=== PATIENT | female | born 1965 | race Native Hawaiian/Other Pacific Islander ===

== ENCOUNTER 2022-05-22 11:21 | Inpatient (IN) | payer MEDICAID, OTHER ==
[~2022-05-22] VITALS: Ht 165.1 cm; Wt 135.1 kg
[2022-05-22 12:00] LABS: Basophils # (auto) 0 10 ^3/uL (0-0.2); Basophils % (auto) 0.6 % (0.0-2.0); Eosinophils # (auto) 0.4 10 ^3/uL (0-0.8); Eosinophils % (auto) 6.8 % (0.0-7.0); Hematocrit 42.6 % (36.0-46.0); Hemoglobin 14.2 g/dL (12.2-16.2); Lymphocytes # (auto) 1.3 10 ^3/uL (0.4-5.4); Lymphocytes % (auto) 24.7 % (10.0-50.0); Mean Corpuscular Hemoglobin 30.6 pg (28.0-32.0); Mean Corpuscular Hgb Conc. 33.5 g/dL (32.0-36.0); Mean Corpuscular Volume 91.5 fL (80.0-100.0); Monocytes # (auto) 0.3 10 ^3/uL (0-1.3); Monocytes % (auto) 6.4 % (0.0-12.0); Neutrophils # (auto) 3.2 10 ^3/uL (1.6-8.6); Neutrophils % (auto) 61.5 % (37.0-80.0); Red Blood Cells 4.65 10^6/uL (4.0-5.20); Red Cell Distribution Width 13.8 % (11.8-14.3); White Blood Cell 5.3 10^3/uL (4.4-10.8)
[2022-05-22] MEDS ORDERED: cloNIDine HCL 0.1 MG TAB PO ONE (12:15)
[2022-05-22 12:41] LABS: Albumin 3.7 g/dL (3.4-5.0); Calcium 8.6 mg/dL (8.5-10.1); Potassium 3.9 mmol/L (3.5-5.1)
[2022-05-22 12:46] LABS: BUN/Creatinine Ratio 21.3; Bilirubin, Total 0.5 mg/dL (0.2-1.0); Total Protein 7.7 g/dL (6.4-8.2)
[2022-05-22] MEDS ORDERED: hydrALAZINE HCL 20 MG/ML VL IV ONE (15:00)
[2022-05-22] MEDS ORDERED: METO-289 PO (15:21)
[2022-05-22] MEDS ORDERED: HYDR25TA5 PO (15:21)
[2022-05-22] MEDS ORDERED: ATOR10TA52 PO (15:21)
[2022-05-22] MEDS ORDERED: AMLO-489 PO (15:21)
[2022-05-22] MEDS ORDERED: MORPHINE SULFATE INJ 2 MG/ml SYRG IV PRN (16:00)
[2022-05-22] MEDS ORDERED: ASPirin 81 mg TAB PO ONE (16:00)
[2022-05-22] MEDS ORDERED: ONDANSETRON HCL 4 MG/2 ML VIAL IV PRN (16:00)
[2022-05-22] MEDS ORDERED: NITROGLYCERIN 0.4 MG SL TAB SL PRN (16:00)
[2022-05-22] MEDS ORDERED: DEXTROSE (50%) 50ML SYRG IV PRN (16:30)
[2022-05-22 17:05] LABS: Cholesterol 151 mg/dL (< 200); HDL Cholesterol 44 mg/dL (40-59); LDL Cholesterol 101 mg/dL (< 100); Triglycerides 90 mg/dL (< 150)
[2022-05-22] MEDS ORDERED: cloNIDine HCL 0.1 MG TAB PO PRN (17:30)
[2022-05-22] MEDS ORDERED: hydrALAZINE HCL 20 MG/ML VL IV PRN (17:30)
[2022-05-22] MEDS ORDERED: amLODIPine BESYLATE 5 MG TAB PO SCH (17:49)
[2022-05-22] MEDS: ACCU-CHEK COMFORT CURVE STRIP VI SCH ×2 (17:58→22:01)
[2022-05-22] MEDS: InsuLIN REG 1unit/0.01ml Soln (100units/ml) SC SCH ×2 (17:59→22:16)
[2022-05-22] MEDS ORDERED: ACETAMINOPHEN 500 MG TAB PO ONE (19:00)
[2022-05-22] MEDS ORDERED: LORazepam 2MG/ML-1ML VIAL IV PRN (19:15)
[2022-05-22 21:50] LABS: Urine Bacteria FEW /hpf (None Seen); Urine Blood Negative /uL (Negative); Urine WBC <1 /hpf (0 - 5)
[2022-05-22] MEDS ORDERED: METOPROLOL TARTRATE 50 MG TAB PO SCH (22:00)
[2022-05-22] MEDS ORDERED: METOPROLOL SUCCINATE XL 50 MG TAB PO SCH (22:00)
[2022-05-22] MEDS: ATORVASTATIN 20 MG TAB PO SCH (22:17)
[2022-05-22 22:27] VITALS: BP 153/96
[2022-05-23 06:06] LABS: Basophils # (auto) 0 10 ^3/uL (0-0.2); Basophils % (auto) 0.7 % (0.0-2.0); Eosinophils # (auto) 0.3 10 ^3/uL (0-0.8); Eosinophils % (auto) 6.9 % (0.0-7.0); Hematocrit 40.2 % (36.0-46.0); Hemoglobin 13.7 g/dL (12.2-16.2); Lymphocytes # (auto) 1.3 10 ^3/uL (0.4-5.4); Lymphocytes % (auto) 29.4 % (10.0-50.0); Mean Corpuscular Hemoglobin 31.1 pg (28.0-32.0); Mean Corpuscular Volume 91.3 fL (80.0-100.0); Monocytes # (auto) 0.3 10 ^3/uL (0-1.3); Neutrophils # (auto) 2.4 10 ^3/uL (1.6-8.6); Red Cell Distribution Width 13.9 % (11.8-14.3); White Blood Cell 4.3 10^3/uL (4.4-10.8)
[2022-05-23 06:25] LABS: Albumin 3.3 g/dL (3.4-5.0); Calcium 8.7 mg/dL (8.5-10.1); Potassium 3.7 mmol/L (3.5-5.1)
[2022-05-23 06:31] LABS: BUN/Creatinine Ratio 21.9; Bilirubin, Total 0.6 mg/dL (0.2-1.0); Total Protein 6.8 g/dL (6.4-8.2)
[2022-05-23] MEDS: ACCU-CHEK COMFORT CURVE STRIP VI SCH ×4 (06:40→21:39)
[2022-05-23] MEDS: InsuLIN REG 1unit/0.01ml Soln (100units/ml) SC SCH ×4 (06:46→21:40)
[2022-05-23] MEDS ORDERED: amLODIPine BESYLATE 5 MG TAB PO SCH (10:00)
[2022-05-23] MEDS ORDERED: HCTZ 25 MG TAB PO SCH (10:00)
[2022-05-23] MEDS: ENOXAPARIN SOD 40 MG/0.4 ML SYRINGE SC SCH (10:34)
[2022-05-23] MEDS: METOPROLOL TARTRATE 25 MG TAB PO SCH ×2 (10:35→21:38)
[2022-05-23] MEDS: ASPirin 81 mg TAB PO SCH (10:36)
[2022-05-23] MEDS: amLODIPine BESYLATE 5 MG TAB PO SCH (10:36)
[2022-05-23] MEDS ORDERED: TRIAMTERENE/HCTZ 37.5/25 MG CAP/TAB PO SCH (18:00)
[2022-05-23] MEDS ORDERED: METF-370 PO (18:32)
[2022-05-23] MEDS ORDERED: MELO1TAB56 PO (18:32)
[2022-05-23 20:00] VITALS: BP 125/80
[2022-05-23] MEDS ORDERED: ACETAMINOPHEN 325 MG TAB PO PRN (21:15)
[2022-05-23] MEDS: ATORVASTATIN 20 MG TAB PO SCH (21:37)
[2022-05-23 22:00] VITALS: BP 125/80
[2022-05-24 05:00] VITALS: BP 138/90
[2022-05-24] MEDS: ACCU-CHEK COMFORT CURVE STRIP VI SCH ×3 (06:54→17:23)
[2022-05-24] MEDS: InsuLIN REG 1unit/0.01ml Soln (100units/ml) SC SCH ×3 (06:55→17:00)
[2022-05-24 08:00] VITALS: BP 149/97
[2022-05-24] MEDS: METOPROLOL TARTRATE 25 MG TAB PO SCH (09:14)
[2022-05-24] MEDS: amLODIPine BESYLATE 5 MG TAB PO SCH (09:15)
[2022-05-24] MEDS: ASPirin 81 mg TAB PO SCH (09:15)
[2022-05-24] MEDS: ENOXAPARIN SOD 40 MG/0.4 ML SYRINGE SC SCH (09:16)
[2022-05-24 09:23] VITALS: BP 149/97
[2022-05-24 12:36] VITALS: BP 125/78
[2022-05-24 16:28] VITALS: BP 119/74
[2022-05-24] MEDS ORDERED: MET25T PO (17:03)
[2022-05-24] MEDS ORDERED: CLON0.1T PO (17:03)
[2022-05-24] MEDS ORDERED: TRIA37.56 PO (17:03)
[2022-05-24] MEDS ORDERED: AML5T PO (17:03)
[2022-05-24 17:29] VITALS: BP 119/74
== END 2022-05-24 18:10 | disposition home or self-care (01) | DRG 199 ==
LOC: ER 11:21 → TELE 16:00 → TELE-WESTW 05-23 14:32
PROVIDERS: ADMIT Registered Nurse; ATTEND Hospitalist
DX: I16.1 Hypertensive emergency (principal); E11.9 Type 2 diabetes mellitus without complications; E78.5 Hyperlipidemia, unspecified; G47.30 Sleep apnea, unspecified; Z20.822 Contact with and (suspected) exposure to COVID-19; E66.01 Morbid (severe) obesity due to excess calories; F17.200 Nicotine dependence, unspecified, uncomplicated; I10 Essential (primary) hypertension; Z79.84 Long term (current) use of oral hypoglycemic drugs; Z80.9 Family history of malignant neoplasm, unspecified; Z82.49 Family history of ischemic heart disease and other diseases of the circulatory system; Z83.3 Family history of diabetes mellitus; G51.0 Bell's palsy; Z68.42 Body mass index [BMI] 45.0-49.9, adult
CPT/HCPCS: 36415; 70450; 70551; 71045; 80053; 80061; 81001; 82962; 83036; 83880; 84443; 84484; 85025; 87426; 93005; 93306; 93886; 95819; 96374; G0378; J1815